=== PATIENT | male | born 1960 | race Caucasian/White ===

== ENCOUNTER 2016-08-06 05:59 | Inpatient (IN) | payer OTHER ==
[~2016-08-06] VITALS: Ht 157.5 cm; Wt 67.1 kg
[~2016-08-06 05:59] MED LIST: CELEBREX200 MG PO; FERROUS SULFAT325 MG PO; LISINOPRIL5 MG PO
[2016-08-06 06:38] VITALS: BP 148/76
[2016-08-06 15:01] VITALS: BP 126/74
[2016-08-06 20:11] VITALS: BP 121/69
[2016-08-07 00:34] VITALS: BP 126/68
[2016-08-07 05:16] VITALS: BP 119/71
[2016-08-07 07:02] LABS: MCV 89.4 FL (86-99)
[2016-08-07 07:28] LABS: ANION GAP 5 MEQ/L (2-14); CHLORIDE 105 MEQ/L (99-109); GFR ESTIMATE (CALCULATED) > 59 mL/min/; GLUCOSE 139 mg/dL (70-99); POTASSIUM 3.9 MEQ/L (3.7-5.4); SAMPLE HEMOLYSIS CHECK 0; SAMPLE ICTERIC CHECK 0; SAMPLE LIPEMIA CHECK 0; SODIUM 140 MEQ/L (136-147); UREA NITROGEN (BUN) 18 mg/dL (9-23)
[2016-08-07 08:36] VITALS: BP 122/66
[2016-08-07 16:42] VITALS: BP 126/82
[2016-08-07 20:26] VITALS: BP 149/71
[2016-08-07 23:47] VITALS: BP 136/72
[2016-08-08 05:00] VITALS: BP 153/72
[2016-08-08 05:26] LABS: HEMATOCRIT 29.9 % (38.0-50.0); MCV 89.3 FL (86-99)
[2016-08-08 08:22] VITALS: BP 156/92
[2016-08-08] MEDS ORDERED: BENADRYL25 MG PO (09:17)
[2016-08-08] MEDS ORDERED: SENNA PLUS TAB1 EACH PO (09:18)
[2016-08-08] MEDS ORDERED: TYLENOL REGULA325 MG PO (09:18)
[2016-08-08] MEDS ORDERED: XARELTO10 MG PO (09:19)
[2016-08-08] MEDS ORDERED: OXYCODONE HCL5 MG PO (09:19)
[2016-08-08] MEDS ORDERED: CELECOXIB200 MG PO (09:19)
[2016-08-08 11:00] VITALS: BP 144/70
[2016-08-08 16:19] VITALS: BP 128/69
[2016-08-08 20:20] VITALS: BP 128/70
[2016-08-09 00:21] VITALS: BP 146/78
[2016-08-09 04:00] VITALS: BP 128/70
[2016-08-09 07:28] VITALS: BP 134/73
== END 2016-08-09 10:36 | disposition home or self-care (01) | DRG 462 ==
LOC: 2SOUTH 05:59 → 3EAST 05:59 → 2SOUTH 09:25 → 3EAST 14:21 → 2SOUTH 15:55 → 3EAST 08-09 10:36
PROVIDERS: Orthopaedic Surgery
DX: M17.0 Bilateral primary osteoarthritis of knee (principal); M25.562 Pain in left knee; M25.561 Pain in right knee
CPT/HCPCS: 80048; 85014; 85018; 97530 GP; C1713; J0131; J0690; J1100; J1170; J1885; J2250; J2405; J2795; J3010; J7050; L1820